=== PATIENT | female | born 1990 | race Hispanic/Latino ===

== ENCOUNTER 2019-08-23 22:45 | Emergency (ER) | payer BC ==
[~2019-08-23] VITALS: Ht 167.6 cm; Wt 100.8 kg
[2019-08-24] MEDS ORDERED: PROTONIX40 MG PO (00:50)
== END 2019-08-24 01:06 | disposition home or self-care (01) ==
LOC: ED 22:45
DX: R10.13 Epigastric pain (principal)
CPT/HCPCS: 80053; 81001; 83690; 84703; 85025; 96361; 96374; 96375; 99284-25; J2270; J2405; J7030